=== PATIENT | female | born 1960 | race Asian ===

== ENCOUNTER 2017-02-24 10:57 | Emergency (ER) | payer MEDICAID, OTHER ==
[~2017-02-24] VITALS: Ht 152.4 cm; Wt 54.4 kg
[2017-02-24] MEDS ORDERED: OCUFLOX5 ML LEFT EYE (11:28)
[2017-02-24 11:44] VITALS: BP 138/77
[2017-02-24 11:46] VITALS: BP 138/77
--- NOTE | 2017-02-24 15:34 | Emergency Room Report ---
History of Present Illness General Chief Complaint: Eye Problems Source: Patient Present Illness HPI 57-year-old female presents to ED for evaluation. States that she's been having pain and redness to her left eye x4 days. Pain is throbbing, 7/10, nonradiating. Notes tearing from the eye. Denies photophobia. Denies fevers or chills. Denies sick contacts or recent travel. No other aggravating relieving factors. Denies any other associated symptom Allergies: Coded Allergies: No Known Allergies (Unverified , 02/24/17) Patient History Past Medical History: none Past Surgical History: none Pertinent Family History: none Social History: Denies: smoking, alcohol use, drug use Now: No Immunizations: UTD Reviewed Nursing Documentation: PMH: Agreed, PSxH: Agreed Nursing Documentation-PMH Past Medical History: No Stated History Review of Systems All Other Systems: negative except mentioned in HPI Physical Exam Vital Signs Date Time Temp Pulse Resp B/P (MAP) Pulse Ox O2 Delivery O2 Flow Rate FiO2 02/24/17 11:10 97.7 76 20 138/77 98 Room Air Sp02 EP Interpretation: reviewed, normal General Appearance: no apparent distress, alert, GCS 15, non-toxic Head: normocephalic Eyes: left eye Scleral Injection, bilateral eye normal inspection, bilateral eye PERRL, bilateral eye EOMI ENT: hearing grossly normal, normal pharynx, no angioedema, normal voice Neck: normal inspection Respiratory: normal inspection Cardiovascular #1: normal inspection Gastrointestinal: normal inspection Rectal: deferred Genitourinary: no CVA tenderness Musculoskeletal: normal inspection Neurologic: normal inspection Psychiatric: normal inspection Skin: normal inspection Lymphatic: normal inspection Medical Decision Making Diagnostic Impression: Primary Impression: Conjunctivitis Qualified Codes: H10.32 - Unspecified acute conjunctivitis, left eye ER Course Hospital Course 57-year-old F presents to ED with L eye redness and watery discharge and pain Differential diagnoses include: conjunctivitis, traumatic iritis, foreign body, corneal abrasion Clinical course Patient placed on stretcher. After initial history, physical exam revealed a middle-aged female no acute distress. There is injected conjunctiva L eyes. Pupils equally reactive to light bilaterally. No evidence of foreign body. Clinical findings consistent with conjunctivitis. Diagnosis - conjunctivitis Stable and discharged to home with prescription for Ocuflox. Followup with PMD/ Optho. Return to ED if symptoms recur or worsen Last Vital Signs Date Time Temp Pulse Resp B/P (MAP) Pulse Ox O2 Delivery O2 Flow Rate FiO2 02/24/17 11:46 97.7 86 20 138/77 98 Room Air Status: improved Disposition: HOME, SELF-CARE Condition: Stable Scripts Ofloxacin (OCUFLOX) 5 Ml Drops 1 DROP LEFT EYE QID for 7 Days, ML Prov: DAVID SOLIZ M.D. 02/24/17 Referrals: NON PHYSICIAN (PCP) Patient Instructions: Bacterial Conjunctivitis DAVID SOLIZ M.D. Feb 24, 2017 15:34
== END 2017-02-24 12:04 | disposition home or self-care (01) ==
LOC: EMR 11:10
DX: H10.32 Unspecified acute conjunctivitis, left eye (principal)
CPT/HCPCS: 99283

== ENCOUNTER 2017-03-07 08:06 | Emergency (ER) | payer OTHER ==
[~2017-03-07] VITALS: Ht 162.6 cm; Wt 56.7 kg
[~2017-03-07 08:06] MED LIST: OCUFLOX5 ML LEFT EYE
[2017-03-07 08:24] VITALS: BP 151/67
--- NOTE | 2017-03-07 08:40 | Emergency Room Report ---
History of Present Illness General Chief Complaint: Eye Problems Source: Patient Present Illness HPI 57-year-old female no significant past medical history presenting with left eye pain for 2 weeks. Patient states red eye, pain, associated with clear tearing. Patient was seen in the emergency room about 10 days ago and was given Cipro drops. Patient states that symptoms have persisted and she is unable to get an appointment with the bus starter. Patient states mild headache, however no nausea or vomiting. Denies any blurry vision. Allergies: Coded Allergies: No Known Allergies (Unverified , 02/24/17) Patient History Past Medical History: see triage record Past Surgical History: none Pertinent Family History: none Reviewed Nursing Documentation: PMH: Agreed, PSxH: Agreed Nursing Documentation-PMH Past Medical History: No History, Except For Hx Hypertension: Yes Review of Systems All Other Systems: negative except mentioned in HPI Physical Exam Vital Signs Date Time Temp Pulse Resp B/P (MAP) Pulse Ox O2 Delivery O2 Flow Rate FiO2 03/07/17 08:24 98.2 81 16 151/67 99 Room Air Sp02 EP Interpretation: reviewed, normal General Appearance: normal inspection, well appearing, no apparent distress, alert, GCS 15, non-toxic Head: normocephalic, atraumatic Eyes: bilateral eye normal inspection, bilateral eye PERRL, bilateral eye EOMI , bilateral eye other - Left eye visual acuity 20/50, right eye visual acuity is 20/30. Left eye with conjunctival redness. No cloudy cornea. Pupils are equal and reactive bilaterally. Intra-ocular pressure noted to be 80 left eye, 30 right eye ENT: normal ENT inspection, normal pharynx, normal voice, moist mucus membranes Neck: normal inspection, full range of motion, supple Respiratory: normal inspection, lungs clear, normal breath sounds, no respiratory distress, no retraction, no wheezing, speaking full sentences, chest symmetrical Cardiovascular #1: normal inspection, regular rate, rhythm, no edema, normal capillary refill Cardiovascular #2: 2+ radial (R), 2+ radial (L) Gastrointestinal: normal inspection, non tender, soft, non-distended, no guarding Musculoskeletal: normal inspection, back normal, normal range of motion, non- tender Neurologic: normal inspection, alert, oriented x3, responsive, motor strength/ tone normal, sensory intact, normal gait, speech normal Psychiatric: normal inspection, judgement/insight normal, memory normal Skin: normal inspection, normal color, no rash, warm/dry, well hydrated, normal turgor Medical Decision Making Diagnostic Impression: Primary Impression: Chronic angle-closure glaucoma of left eye ER Course 57-year-old female with left eye pain for 2 weeks DDX: Conjunctivitis, or glaucoma Plan: ophtho consult Timolol, Diamox ER course: Spoke to Dr. Harper from ophthalmology, conveyed that patient has had left eye pain associated with headache for 2 weeks, likely chronic glaucoma, pressures elevated, instructed to give patient Diamox, timolol,xalaton, alfagan, and pt likely needs laser therapy outpatient. Patient was given xalatan, alphagan, diamox, timlolol in ED repeat pressure, R eye 30, L eye 55 (down from 80) Pt states she feels better Disposition: Patient is to be discharged to home. Patient given multiple ophthalmic prescriptions Patient is instructed to followup with an bus starter in the next 72 hours as she may require surgery for chronic glaucoma Patient is instructed to follow up with their primary care doctor within 5 days. Strict return precautions discussed with patient such as fever, chills, worsening/severe pain, nausea, vomiting, which may indicate severe illness. Patient verbalizes understanding and agrees with plan. Please note that this Emergency Department Report was dictated using wufooaccount clerk technology software, occasionally this can lead to erroneous entry secondary to interpretation by the dictation equipment Rhythm Strip Diag. Results EP Interpretation: yes Rate: 55 Rhythm: NSR, no PVC's, no ectopy Last Vital Signs Date Time Temp Pulse Resp B/P (MAP) Pulse Ox O2 Delivery O2 Flow Rate FiO2 03/07/17 08:24 98.2 16 151/67 99 Room Air 03/07/17 08:24 81 Disposition: HOME, SELF-CARE Condition: Improved Scripts Latanoprost* (XALATAN*) 2.5 Ml Drops 1 DROP BOTH EYES BEDTIME for 10 Days, #25 ML 0 Refills Prov: Retino,Clairose M.D. 03/07/17 Brimonidine Tartrate* (ALPHAGAN*) 5 Ml Drops 1 DROP BOTH EYES TID for 10 Days, #150 ML 0 Refills Prov: Retino,Clairose M.D. 03/07/17 Timolol (BETIMOL) 5 Ml Drops 5 ML OP BID for 10 Days, #100 ML 0 Refills Prov: Chung Mina M.D. 03/07/17 Acetazolamide* (ACETAZOLAMIDE*) 500 Mg Capsule.er 500 MG ORAL TWICE A DAY for 10 Days, #20 CAP 0 Refills Prov: Chung Mina M.D. 03/07/17 Patient Instructions: Glaucoma, [id number] Chung Mina M.D. Mar 07, 2017 08:40
[2017-03-07] MEDS ORDERED: Tetracaine 0.5% Opth Soln LEFT EYE ONE (08:45)
[2017-03-07] MEDS ORDERED: Timolol 0.5% Op Soln 2.5ml LEFT EYE ONE (09:45)
[2017-03-07] MEDS ORDERED: Brimonidine 0.2% Opth Sol BOTH EYES ONE (10:30)
[2017-03-07] MEDS ORDERED: ACETAZOLAMIDE500 MG ORAL (10:46)
[2017-03-07] MEDS ORDERED: LATANOPROST2.5 ML BOTH EYES (10:46)
[2017-03-07] MEDS ORDERED: BRIMONIDINE TART5 ML BOTH EYES (10:46)
[2017-03-07] MEDS ORDERED: BETIMOL5 M2 OP (10:46)
[2017-03-07 11:20] VITALS: BP 148/72
[2017-03-07 12:30] VITALS: BP 128/75
== END 2017-03-07 12:30 | disposition home or self-care (01) ==
LOC: EMR 08:52
DX: H40.2220 Chronic angle-closure glaucoma, left eye, stage unspecified (principal); R51 Headache; I10 Essential (primary) hypertension
CPT/HCPCS: 99284